=== PATIENT | female | born 1965 | race Caucasian/White ===

== ENCOUNTER 2018-07-06 02:38 | Outpatient (CLI) | payer BC, SELFPAY ==
--- NOTE | 2018-07-06 | PFT_ITS ---
PULMONARY FUNCTION TEST REPORT Patient identification Hiren Billy DATE OF 67 DATE OF SERVICE 07/06/2018 REQUESTING PROVIDER - Delores Leary M.D. INTERPRETATION OF STUDY Spirometry shows no evidence of obstructive airways disease. No bronchodilator testing was carried out. LUNG VOLUMES - Lung volumes show no evidence of restriction. DIFFUSION CAPACITY- Normal. AIRWAY RESISTANCE - Normal. IMPRESSION Normal pulmonary function study. Clinical correlation recommended. Cate Fontaine M.D. ONUR/bjorn T 07/10/2018
--- NOTE | 2018-07-06 | PFT_ITS ---
PULMONARY FUNCTION TEST REPORT Patient identification Hiren Billy DATE OF 67 DATE OF SERVICE 07/06/2018 REQUESTING PROVIDER Delores Leary M.D. INTERPRETATION OF STUDY Spirometry shows no evidence of obstructive airways disease. There is no bronchodilator testing carried out. LUNG VOLUMES - Lung volumes show no evidence of restriction. DIFFUSION CAPACITY- Normal. AIRWAY RESISTANCE - Normal. IMPRESSION Overall normal pulmonary function study. Clinical correlation recommended. Cate Fontaine M.D. ONUR/bjorn T 07/07/2018
== END 2018-07-06 02:58 ==
PROVIDERS: PCP Family Medicine; Visit Provider Family Medicine
DX: R06.2 Wheezing (principal)
CPT/HCPCS: 94060; 94150; 94726; 94729

== ENCOUNTER 2018-12-14 07:48 | Outpatient (CLI) | payer BC, SELFPAY ==
[2018-12-15 10:55] LABS: Lyme Ab w Rflx to Lyme Confirm Negative
== END 2018-12-14 08:08 ==
PROVIDERS: PCP Family Medicine; Visit Provider Family Medicine
DX: R53.83 Other fatigue (principal); W57.XXXA Bitten or stung by nonvenomous insect and other nonvenomous arthropods, initial encounter
CPT/HCPCS: 36415; 86618

== ENCOUNTER 2019-10-04 02:04 | Outpatient (CLI) | payer OTHER, SELFPAY ==
--- NOTE | 2019-10-04 08:03 | DI.RAD_ITS ---
EXAM: XR HIP LT COMPLETE AP PELVIS CLINICAL HISTORY: left hip pain,m25.552 TECHNIQUE: COMPARISON: CT CHEST ABD PELVIS WITH CONTRAST from 11/24/2011 CR RIGHT RIBS TO INCLUDE CXR from 08/29/2014 CR XR LUMBAR SPINE COMPLETE from 10/04/2019 FINDINGS: Two views of the hip and pelvis were obtained. No fracture is seen. Mild degenerative changes of lily th SI joints noted. Five views of lumbosacral spine were obtained. There is vertebral body fixation at L1-2 left lateral ly placed Bed[place] rods. Alignment is probably unchanged from prior chest film of August 2014, mild retrolisthesis noted at L2-3, probably unchanged.. Intervertebral disc spaces of the lumbar spine a ppear fairly well maintained. There are moderate hypertrophic degenerative changes of the facet joints of the lumbar spine. No spo ndylolysis or spondylolisthesis. Mild DJD of the SI joints noted. IMPRESSION: Old fixated L2 and L3 fracture noted, no gross interval change from prior studies. Degenerative barrera ges as described above.
== END 2019-10-04 02:24 ==
PROVIDERS: PCP Family Medicine; Visit Provider Family Medicine
DX: M25.552 Pain in left hip (principal); M54.5 Low back pain; M53.3 Sacrococcygeal disorders, not elsewhere classified; M47.816 Spondylosis without myelopathy or radiculopathy, lumbar region; Z87.81 Personal history of (healed) traumatic fracture
CPT/HCPCS: 72110; 73502

== ENCOUNTER 2019-11-22 02:30 | Outpatient (CLI) | payer OTHER, SELFPAY ==
[2019-11-22 12:39] LABS: Abs Immature Grans 0.01 k/cumm (0.0-0.09); Absolute Basophil Count 0.01 k/cumm (0.0-0.2); Absolute Eosinophil Count 0.06 k/cumm (0.0-0.7); Absolute Neutrophil Count 5.29 k/cumm (1.2-6.7); Basophils % 0.1; Eosinophils % 0.8; HCT 36.8 % (36.0-46.0); HGB 12.7 g/dL (12.0-15.5); Immature Grans % 0.1 %; Lymphocytes % 22.2; Mean Corp. HGB Concentration 34.5 g/dL (32.0-36.0); Mean Corpuscular Hemoglobin 31.8 pg (27.0-33.0); Mean Platelet Volume 9.3 fL (8.0-11.0); Monocytes % 7.8; Platelet Count 277 x1000/uL (130-400); RBC Distribution Width 13.1 % (11.7-14.6); White Blood Cell Count 7.67 k/cumm (4.4-10.8)
[2019-11-22 13:22] LABS: Iron 139 ug/dL (50-170); Total Iron Binding Capacity 328 ug/dL (250-450); Transferrin Sat 42 % (15-50)
[2019-11-22 13:27] LABS: ALT 28 U/L (14-59); AST 29 U/L (15-37); Alkaline Phosphatase 79 U/L (46-116); BUN 27 mg/dL (7-18); Bilirubin, Total 0.5 mg/dL (0.2-1.0); CREATININE 0.97 mg/dL (0.55-1.02); Calcium 8.9 mg/dL (8.5-10.1); Chloride 101 mmol/L (98-107); Creatine Kinase 106 U/L (26-192); FREE T4 0.94 ng/dL (0.76-1.46); Glucose 99 mg/dL (74-106); Magnesium 2.1 mg/dL (1.8-2.4); Sodium 137 mmol/L (136-145); TSH 0.78 uIU/mL (0.36-3.74)
[2019-11-22 13:37] LABS: ESR 12 mm/hr (0-30)
[2019-11-22 13:40] LABS: Vitamin D 25 Total 12.8 ng/ml (30-100)
[2019-11-22 14:06] LABS: Ferritin 127 ng/mL (8-252); Folate 8.2 ng/mL (8.6-20.0); Vitamin B12 204 pg/mL (193-986)
[2019-11-22 21:36] LABS: Rheumatoid Factor 10.7 IU/mL (<12.0)
[2019-11-22 21:53] LABS: T3,Free 3.3 pg/mL (2.8-5.3)
[2019-11-23 10:47] LABS: Lyme Ab w Rflx to Lyme Confirm Negative (Negative)
[2019-11-23 10:52] LABS: Syphilis Serology (RPR) Negative (Negative)
[2019-11-23 14:59] LABS: Hepatitis C Ab w Rflx HCV PCR Negative (Negative)
[2019-11-23 15:12] LABS: ANA Interpretation Negative (Negative)
== END 2019-11-22 02:50 ==
PROVIDERS: PCP Family Medicine; Visit Provider Physical Medicine & Rehabilitation
DX: M79.10 Myalgia, unspecified site (principal); G47.9 Sleep disorder, unspecified; E61.1 Iron deficiency; E55.9 Vitamin D deficiency, unspecified; R53.83 Other fatigue; M89.9 Disorder of bone, unspecified
CPT/HCPCS: 36415; 80053; 82306; 82550; 85652; 86803; 82607; 82728; 82746; 83540; 83550; 83735; 84439; 84443; 84481; 85025; 86038; 86431; 86592; 86618

== ENCOUNTER 2020-01-24 09:05 | Outpatient (CLI) | payer OTHER, SELFPAY ==
[2020-01-26 10:33] LABS: Patient Race White; SARS-CoV-2 RNA Undetected (Undetected); SARS-CoV-2 Specimen Source Nasopharynx
== END 2020-01-24 09:25 ==
PROVIDERS: PCP Family Medicine; Visit Provider Family Medicine
DX: Z11.59 Encounter for screening for other viral diseases (principal)
CPT/HCPCS: U0003

== ENCOUNTER → 2020-05-08 13:20 | Outpatient (REF) | payer OTHER, SELFPAY ==
[2020-05-08 20:58] LABS: Folate 19.2 ng/mL (8.6-20.0)
[2020-05-08 21:05] LABS: Vitamin D 25 Total 48.6 ng/ml (30-100)
== END ==
LOC: LBN 13:20
PROVIDERS: PCP Family Medicine; Visit Provider Family Medicine
DX: Z00.00 Encounter for general adult medical examination without abnormal findings (principal); R53.83 Other fatigue; E55.9 Vitamin D deficiency, unspecified; F32.9 Major depressive disorder, single episode, unspecified
CPT/HCPCS: 82306; 82746

== ENCOUNTER 2021-04-05 17:38 | Outpatient (REF) | payer OTHER, SELFPAY ==
[2021-04-07 16:50] LABS: COVID-19 RT-PCR UVMMC Result Negative (Negative)
== END 2021-04-05 17:39 | disposition home or self-care (01) ==
LOC: LBN 17:38
PROVIDERS: PCP Family Medicine; Visit Provider Nurse Practitioner Family
DX: Z20.822 Contact with and (suspected) exposure to COVID-19 (principal)
CPT/HCPCS: U0003

== ENCOUNTER 2021-05-02 19:49 | Outpatient (REF) | payer OTHER, SELFPAY ==
[2021-05-04 10:16] LABS: COVID-19 RT-PCR UVMMC Result Negative (Negative)
== END 2021-05-02 19:50 | disposition home or self-care (01) ==
LOC: LBN 19:49
PROVIDERS: PCP Family Medicine; Visit Provider Physician Assistant Medical
DX: Z20.822 Contact with and (suspected) exposure to COVID-19 (principal); R05.9 Cough, unspecified; R09.89 Other specified symptoms and signs involving the circulatory and respiratory systems; R53.83 Other fatigue
CPT/HCPCS: U0003

== ENCOUNTER 2021-06-18 16:22 | Outpatient (REF) | payer SELFPAY ==
--- NOTE | 2021-06-18 14:00 | PAPFT_PTH ---
PATIENT: Karol Billy LOC: [facility] U#:[id number] AGE/SX: 55/F ROOM: RE06/18/[address]: Delores Leary MD, DC : 1965 BED: DIS: 06/18/2021 SPEC #: [id number] RECD: 06/18/21 18:14 STATUS: NYLA REJett #: [id number] VIVIANA: 06/18/21 14:[address]: Delores Leary DEPT: [facility] Cytology RECD BY: Sharyn Luna Tissues: 1 - CX/ENDOCX FOR PAP SMEARS Procedures: PAP THIN PREP/UVM Screening HPV DNA PROBE Comments: [id number]
== END 2021-06-18 16:23 | disposition home or self-care (01) ==
LOC: LBN 16:22
PROVIDERS: PCP Family Medicine; Visit Provider Family Medicine
DX: Z12.4 Encounter for screening for malignant neoplasm of cervix (principal); Z11.51 Encounter for screening for human papillomavirus (HPV)
CPT/HCPCS: 88142; 87624

== ENCOUNTER 2023-01-28 20:34 | Outpatient (REF) | payer BC, SELFPAY ==
[2023-01-28 13:28] LABS: *AMPHETAMINES SCREEN URINE Positive (Negative); *BARBITURATES SCREEN URINE Negative (Negative); *BENZODIAZEPINES SCREEN URINE Negative (Negative); Cannabinoids THC Positive (Negative); Cocaine Screen,Urine Negative (Negative); METHADONE URINE SCREEN Negative (Negative); OPIATES URINE SCREEN Negative (Negative); Tricyclic Antidepressants Negative (Negative)
== END 2023-01-28 20:35 | disposition home or self-care (01) ==
LOC: LBN 20:34
PROVIDERS: PCP Family Medicine; Visit Provider Family Medicine
DX: F98.8 Other specified behavioral and emotional disorders with onset usually occurring in childhood and adolescence (principal); R82.5 Elevated urine levels of drugs, medicaments and biological substances
CPT/HCPCS: 80307

== ENCOUNTER 2024-04-13 10:38 | Outpatient (CLI) | payer BC, SELFPAY ==
[2024-04-13 12:20] LABS: HCT 36.9 % (36.0-46.0); HGB 12.4 g/dL (11.2-15.7); MCH 30.8 pg (27.0-33.0); MCHC 33.6 % (32.0-36.0); MCV 92 fL (80-95); MPV 9.4 fL (8.0-11.0); Platelet Count 314 10^3/uL (130-400); RBC 4.02 10^6/uL (3.93-5.22); RDW 12.8 % (11.7-14.6); RDW-SD 43.7 fL; WBC 7.33 10^3/uL (4.4-10.8)
[2024-04-13 12:40] LABS: Hemoglobin A1C 5.9 % (<5.7)
[2024-04-13 13:07] LABS: ALT 15 U/L (14-59); AST 19 U/L (15-37); Albumin 3.6 g/dL (3.4-5.0); Alkaline Phosphatase 97 U/L (46-116); Anion Gap 7.4 mmol/L (3-11); BUN 14 mg/dL (7-18); Bilirubin, Total 0.31 mg/dL (0.2-1.0); CO2 28.6 mmol/L (21.0-32.0); CREATININE 0.6 mg/dL (0.55-1.02); Chloride 104 mmol/L (98-107); Estimated GFR 104.63 (mL/min/1.73m2); Glucose 92 mg/dL (74-106); Sodium 140 mmol/L (136-145); TSH (W/Ref FT4) 1.17 uIU/mL (0.36-3.74); Total Protein 7.1 g/dL (6.4-8.2); Vitamin B12 207 pg/mL (193-986)
== END 2024-04-13 10:39 | disposition home or self-care (01) ==
PROVIDERS: PCP Family Medicine; Referring Provider Nurse Practitioner Family; Visit Provider Family Medicine
DX: F98.8 Other specified behavioral and emotional disorders with onset usually occurring in childhood and adolescence (principal); E11.9 Type 2 diabetes mellitus without complications; E03.9 Hypothyroidism, unspecified; I10 Essential (primary) hypertension
CPT/HCPCS: 36415; 80053; 85027; 82607; 83036; 84443

== ENCOUNTER 2024-08-17 09:24 | Outpatient (REF) | payer OTHER, SELFPAY ==
--- NOTE | 2024-08-17 08:30 | PAPFT_PTH ---
PATIENT: Karol Billy LOC: [facility] U#:[id number] AGE/SX: 58/F ROOM: RE08/17/[address]: Delores Leary MD, DC : 1965 BED: DIS: 08/17/2024 SPEC #: [id number] RECD: 08/17/24 12:59 STATUS: NYLA REQ #: [id number] VIVIANA: 08/17/24 08:[address]: Delores Leary DEPT: [facility] Cytology RECD BY: Sharyn Luna Tissues: 1 - CX/ENDOCX FOR PAP SMEARS Procedures: PAP THIN PREP/UVM Screening HPV DNA PROBE Comments: [id number] (HPV 16 & 18/45)
== END 2024-08-17 09:25 | disposition home or self-care (01) ==
LOC: LBN 09:24
PROVIDERS: PCP Family Medicine; Visit Provider Family Medicine
DX: Z12.4 Encounter for screening for malignant neoplasm of cervix (principal)
CPT/HCPCS: 88142; 87624

== ENCOUNTER 2024-11-10 02:08 | Outpatient (CLI) | payer OTHER, SELFPAY ==
--- NOTE | 2024-11-10 12:52 | DI.CTLCSR_ITS ---
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 Low dose screening protocol. COMPARISON: CT CHEST ABD PELVIS WITH CONTRAST from 11/24/2011 CR RIGHT RIBS TO INCLUDE CXR from 08/29/2014 CR XR LUMBAR SPINE COMPLETE from 10/04/2019 FINDINGS: Tracheobronchial tree: No bronchiectasis or mucus plugging. Mediastinum and [place]: No dominant adenopathy or fluid collection. Pulmonary parenchyma: No consolidation or dominant measurable mass. No visible emphysematous changes. Mild bilateral apical scarring. Lung Nodules: 3.5 Millimeter nodule at the right lung apex. There are few other scattered micro nodules. Pleura: No effusion. No pneumothorax. Heart: The heart is not dilated. No coronary artery calcifications are seen. No pericardial effusion. Aorta: Thoracic aorta non-dilated. Upper abdomen: Unremarkable. Bones: Hardware at L1-2. Mild degenerative changes in the thoracic spine. Soft Tissues: Unremarkable. IMPRESSION: No suspicious pulmonary nodules. Lung RADS Cat 2 - Benign Appearance / Behavior: Nodules with a very low likelihood of becoming a clinically active cancer due to size or lack of growth Lung-RADS 1.0 CATEGORIES: Category 0 - Prior chest CT exam(s) being located for comparison. Category 1 - Annual screening in 12 months. No nodules or definitely benign nodules. Category 2 - Annual screening in 12 months. Benign appearance. Nodules with low likelihood of becoming active cancer. Category 3 - 6-month follow-up. Probably benign. Short-term follow-up suggested. Nodules with low likelihood of becoming active cancer. Category 4A - 3-month follow-up and CT/PET if >8 mm in size. Suspicious finding. Findings which require additional testing. Category 4B - Findings which require additional testing and tissue sampling. Category 4X - Category 3 or 4 nodules with additional features or imaging findings that increases the suspicion of malignancy. Modifier S- Potentially clinically significant findings (non lung cancer) RADIATION DOSE DELIVERED: !Error Total DLP DATA REPOSITORY: All CT scans at this facility are submitted to the National Radiology Data Registry (NRDR) Dose Index Registry (DIR) with the [employer] ([employer]). RADIATION OPTIMIZATION: All CT scans at this facility use at least one of these dose optimization techniques: automated exposure control; mA and/or kV adjustment per patient size (includes targeted exams where dose is matched to clinical indication); or iterative reconstruction.
--- NOTE | 2024-11-10 12:59 | DI.MAMMO_ITS ---
Exam(s) MAMMO SCREENING EXAM: MAMMO SCREENING CLINICAL HISTORY: screening,z12.39. TECHNIQUE: Bilateral full field digital CC and MLO mammographic images were obtained with 3D tomosynthesis and utilizing computer aided detection (CAD). COMPARISON: 2017 FINDINGS: Masses: None seen. Architectural Distortion: None seen. Microcalcifications: No suspicious pleomorphic-type are seen. Skin Thickening/Nipple Retraction: None. IMPRESSION: 1. No significant interval change with no specific features of malignancy noted. 2. Unless there is more urgent need, annual screening mammography is recommended, as per [place] [employer] guidelines. BI-RADS Category 1-negative Breast Density - Category D - The breast are extremely dense, which lowers the sensitivity of the mammography. Breast density Category C or D implies that the patient has dense breast tissue. Dense breast tissue can make it harder to find cancer on a mammogram. Dense breast tissue is also associated with an increased risk of breast cancer. This information about the result of the mammogram report was provided to the patient to raise their awareness. Use this report when you speak with the patient about their risks for breast cancer, which includes their family history. At that time, you may recommend additional screening tests (Ultrasound or MRI) as these tests may add significant information. A negative radiographic report should not delay biopsy if a dominant or clinically suspicious mass is present. Up to ten percent of cancers are not identified on mammography. A negative report may reinforce clinical impression. Adenosis and dense breasts may obscure an underlying neoplasm. False positive reports average 6 to 10%. Patient will receive a letter notifying them of these results.
== END 2024-11-10 02:28 ==
LOC: DI 02:08
PROVIDERS: PCP Family Medicine; Visit Provider Family Medicine
DX: Z12.31 Encounter for screening mammogram for malignant neoplasm of breast (principal); Z87.891 Personal history of nicotine dependence; R92.343 Mammographic extreme density, bilateral breasts
CPT/HCPCS: 71271; 77063; 77067

== ENCOUNTER 2024-12-28 15:15 | Outpatient (REF) | payer OTHER, SELFPAY ==
[2024-12-28 14:07] LABS: Cannabinoids THC Positive (Negative); METHADONE URINE SCREEN Negative (Negative)
== END 2024-12-28 15:16 | disposition home or self-care (01) ==
LOC: LBN 15:15
PROVIDERS: PCP Family Medicine; Visit Provider Family Medicine
DX: F98.8 Other specified behavioral and emotional disorders with onset usually occurring in childhood and adolescence (principal)
CPT/HCPCS: 80307